=== PATIENT | male | born 1990 | race Caucasian/White ===

== ENCOUNTER 2017-04-29 09:41 | Emergency (ER) | payer BC ==
[2017-04-29] MEDS ORDERED: prednisoLONE Soln 15 MG/5 ML UD Cup PO ONE (09:55)
--- NOTE | 2017-04-29 09:55 | EDM.PDOC ---
ED HPI GENERAL MEDICAL PROBLEM - General Chief Complaint: ENT Problem Stated Complaint: PT HAS SORE THROAT Time Seen by Provider: 04/29/17 09:50 Source of Information: Reports: Patient History Limitations: Reports: No Limitations - History of Present Illness INITIAL COMMENTS - FREE TEXT/NARRATIVE: HISTORY AND PHYSICAL: []26-year-old male presenting with sore throat uvula swollen History of Present Illness: []Patient states he went to bed last night with a slight sore throat this morning had difficulty swallowing and uvula swollen Review of Systems: As per history of present illness and below otherwise all systems reviewed and negative. Past medical history: As per history of present illness and as reviewed below otherwise noncontributory. Surgical history: As per history of present illness and as reviewed below otherwise noncontributory. Social history: No reported history of drug or alcohol abuse. Family history: As per history of present illness and as reviewed below otherwise noncontributory. Physical exam: Certain oriented young man who is speaking Hoarsely HEENT: Atraumatic, normocehpalic, pupils reactive, negative for conjunctival pallor or scleral icterus, mucous membranes moist, throat with edematous uvula, neck supple, nontender, trachea midline. Erythema noted to the posterior pharynx. Bilateral tympanic membranes with erythema. Shotty anterior cervical adenopathy is present. Lungs: Clear to auscultation, breath sounds equal bilaterally, chest non tender. Heart: S1S2, regular, negative for clicks, rubs, or JVD. Abdomen: Soft, nondistended, nontender. Negative for masses or hepatossplenmegaly. Negative for costovertebral tenderness. Pelvis: Deferred. Genitourinary: Deferred. Rectal: Deferred Extremities: Atraumatic, negative for cords or calf pain. Neurovascular unremarkable. Neuro: Awake, alert, oriented. Cranial nerves II through XII unremarkable. Cerebellum unremarkable. Motor and sensory unremarkable throughout. Exam nonfocal. Diagnostics: [None] Therapeutics: Prednisolone syrup] Impression: [#1 bilateral otitis media #2 acute pharyngitis #3 uvulitis] Plan: [Sent home Prescriptions will be sent to [facility] Medrol Dosepak Azithromycin] Definitive disposition and diagnosis as appropriate pending reevaluation and review of above. Onset: Today, Sudden Duration: Hour(s):, Getting Worse Location: Reports: Other (uvular is swollen) Quality: Reports: Ache Severity: Moderate Improves with: Reports: None Worsens with: Reports: None Associated Symptoms: Reports: No Other Symptoms - Related Data Allergies Allergy/AdvReac Type Severity Reaction Status Date / Time No Known Allergies Allergy Verified 04/29/17 09:53 Home Meds: Home Meds Azithromycin [IJD: Azithromycin] 250 mg PO DAILY #6 tab 04/29/17 [Rx] methylPREDNISolone [Medrol] 4 mg PO ASDIRECTED #1 dosepk 04/29/17 [Rx] Social & Family History - Tobacco Use Smoking Status *Q: Current Some Day Smoker Years of Tobacco use: 10 - Alcohol Use Days Per Week of Alcohol Use: 6 Number of Drinks Per Day: 3 Total Drinks Per Week: 18 - Recreational Drug Use Recreational Drug Use: No ED ROS ENT - Review of Systems Review Of Systems: ROS reveals no pertinent complaints other than HPI. ED EXAM, ENT - Physical Exam Exam: See Below (See dictation) Departure - Departure Time of Disposition: 09:56 Disposition: Home, Self-Care 01 Condition: good Clinical Impression: Uvulitis Otitis media Qualifiers: Otitis media type: unspecified Chronicity: acute Laterality: unspecified laterality Qualified Code(s): H66.90 - Otitis media, unspecified, unspecified ear - Discharge Information Prescriptions: Azithromycin [IJD: Azithromycin] 250 mg PO DAILY #6 tab methylPREDNISolone [Medrol] 4 mg PO ASDIRECTED #1 dosepk Forms: ED Department Discharge Additional Instructions: The following information is given to patients seen in the emergency department who are being discharged to home. This information is to outline your options for follow-up care. We provide all patients seen in our emergency department with a follow-up referral. The need for follow-up, as well as the timing and circumstances, are variable depending upon the specifics of your emergency department visit. If you don't have a primary care physician on staff, we will provide you with a referral. We always advise you to contact your personal physician following an emergency department visit to inform them of the circumstance of the visit and for follow-up with them and/or the need for any referrals to a consulting specialist. The emergency department will also refer you to a specialist when appropriate. This referral assures that you have the opportunity for followup care with a specialist. All of these measure are taken in an effort to provide you with optimal care, which includes your followup. Under all circumstances we always encourage you to contact your private physician who remains a resource for coordinating your care. When calling for followup care, please make the office aware that this follow-up is from your recent emergency room visit. If for any reason you are refused follow-up, please contact the [facility] emergency department at and asked to speak to the emergency department charge nurse. Prescriptions have been sent to [facility] Azithromycin Follow-up with your primary care
[2017-04-29 10:21] VITALS: BP 125/62
== END 2017-04-29 10:16 | disposition home or self-care (01) ==
LOC: MW.ED 09:41
DX: K12.2 Cellulitis and abscess of mouth (principal); H66.93 Otitis media, unspecified, bilateral; J02.9 Acute pharyngitis, unspecified; F17.210 Nicotine dependence, cigarettes, uncomplicated; Z79.899 Other long term (current) drug therapy
CPT/HCPCS: 99282; A9270; 99283

== ENCOUNTER 2024-08-13 21:26 | Emergency (ER) | payer BC ==
[2024-08-13] MEDS: cefTRIAXone 500 MG in Lidocaine 1% 1 ML IM ONE (22:09)
[2024-08-13 22:36] VITALS: BP 147/84; PULSE 79
== END 2024-08-13 22:37 | disposition home or self-care (01) ==
LOC: MW.ED 21:26
DX: N34.2 Other urethritis (principal); A64 Unspecified sexually transmitted disease
CPT/HCPCS: 96372; 99282; J0696; 99283; J3490

== ENCOUNTER 2024-11-04 18:23 | Emergency (ER) | payer BC ==
[2024-11-04 20:07] VITALS: BP 145/85; PULSE 71
== END 2024-11-04 20:41 | disposition home or self-care (01) ==
LOC: MW.ED 18:23
DX: J06.9 Acute upper respiratory infection, unspecified (principal); Z75.8 Other problems related to medical facilities and other health care
CPT/HCPCS: 87428-QW; 87651-QW; 99283

== ENCOUNTER 2025-07-27 08:45 | Emergency (ER) | payer BC ==
[2025-07-27 08:56] VITALS: BP 139/79; PULSE 83
[2025-07-27 09:57] LABS: BASOPHILS ABSOLUTE AUTO 0.03 K/uL (0.00-0.20); BASOPHILS PERCENT AUTO 0.3 % (0.0-1.0); EOSINOPHILS ABSOLUTE AUTO 0.17 K/uL (0.00-0.45); EOSINOPHILS PERCENT AUTO 1.7 % (0.0-6.0); IMMATURE GRAN ABSOLUTE AUTO 0.03 K/uL (0.00-0.05); IMMATURE GRAN PERCENT AUTO 0.3 % (0.0-0.4); LYMPHOCYTES ABSOLUTE AUTO 2.78 K/uL (1.00-4.80); LYMPHOCYTES PERCENT AUTO 27.4 % (24.0-44.0); MEAN PLATELET VOLUME 8.8 fL (9.4-12.4); MONOCYTES ABSOLUTE AUTO 1.09 K/uL (0.00-0.80); MONOCYTES PERCENT AUTO 10.7 % (0.0-8.0); NEUTROPHILS ABSOLUTE AUTO 6.04 K/uL (1.80-7.70); NEUTROPHILS PERCENT AUTO 59.6 % (41.0-71.0); NRBC ABSOLUTE 0.00 K/uL (0.00-0.02); NRBC PERCENT 0.0 /100WBC (0.0-0.2); PLATELET COUNT,PLT 256 K/uL (150-400); RED BLOOD CELL COUNT 4.79 M/uL (4.52-5.90); WHITE BLOOD CELL COUNT,WBC 10.14 K/uL (3.9-11.3)
[2025-07-27 10:18] LABS: A/G RATIO 1.2 (0.9-1.6); ALANINE AMINOTRANSFERASE,ALT 26.0 IU/L (14-63); ASPARTATE AMNIOTRANSFERASE,AST 16.0 IU/L (15-37); BILIRUBIN TOTAL 0.5 mg/dL (0.2-1.0); BLOOD UREA NITROGEN,BUN 20.0 mg/dL (7.0-18.0); CARBON DIOXIDE,CO2 27.9 mmol/L (21.0-32.0); CHLORIDE,CL 102.0 mmol/L (98-107); CREATININE 1.3 mg/dL (0.8-1.3); EST CRCL DRUG DOSING (CG) 81.89 mL/min; GLUCOSE RANDOM 129.0 mg/dL (74-106); POTASSIUM,K 4.2 mmol/L (3.5-5.1); PROTEIN TOTAL,TP 7.0 g/dL (6.4-8.2); SODIUM,NA 141.0 mmol/L (136-148)
[2025-07-27 10:20] LABS: ESTIMATED GFR 73.0 mL/min (>60)
[2025-07-27 10:21] LABS: LACTIC ACID 2.4 mmol/L (0.4-2.0)
== END 2025-07-27 11:41 | disposition left against medical advice (07) ==
LOC: MW.ED 08:45
DX: K64.5 Perianal venous thrombosis (principal); E87.20 Acidosis, unspecified
CPT/HCPCS: 36415; 80053; 83605; 85025; 99283; A9270